=== PATIENT | female | born 1955 | race Caucasian/White ===

== ENCOUNTER → 2018-08-25 | Outpatient (CLI) | payer OTHER ==
[~2018-08-25] MED LIST: ALPR0.5T7 PO; AMLO2.5T4 PO; MTX2.5T PO; OXYC1TAB87 PO
--- NOTE | 2018-08-25 12:15 | Diagnostic Imaging Report ---
INDICATION: Low back pain radiating to the right hip and down the right leg. COMPARISON: None. DISCUSSION: Three views lumbosacral spine were obtained. Mild dextroscoliosis is noted centered at L3. Grade 1 anterolisthesis of L4 and L5 secondary to advanced facet arthropathy. No fracture. Mild degenerative disc disease noted at L4-L5 and L5-S1 level. Moderate degenerative changes within the bilateral sacroiliac joints. Soft tissues are unremarkable. IMPRESSION: 1. Degenerative changes and malalignment of the lumbar spine as described. Further evaluation of central canal or neural foraminal narrowing could be performed with noncontrast MRI on a nonemergent basis as clinically indicated. Dictated by: Dictated on workstation # [id number]
== END ==
LOC: RAD 11:42
PROVIDERS: ATTEND Nurse Practitioner Family
DX: M47.816 Spondylosis without myelopathy or radiculopathy, lumbar region (principal)
CPT/HCPCS: 72100